=== PATIENT | male | born 1990 | race African-American/Black ===

== ENCOUNTER 2017-06-17 01:30 | Inpatient (IN) | payer SELFPAY ==
[2017-06-17] VITALS (10 sets, daily range): BP systolic 137–159; BP diastolic 90–104
[~2017-06-17] VITALS: Ht 180.3 cm; Wt 101.2 kg
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
[2017-06-17] MEDS ORDERED: DIPHTH,PERTUSS(ACELL),TET TOX 0.5 ML DISP.SYRIN. VAX IM ONE (02:30)
[2017-06-17] MEDS ORDERED: MORPHINE SULFATE 2 MG/ML DISP.SYRIN. IV/SQ PRN (02:30)
[2017-06-17 02:45] LABS: BASO # 0.1 x10^3/uL (0.0-0.2); BASO % 1 % (0-3); EOS % 1 % (0-3); HEMOGLOBIN 15.9 g/dL (13.0-17.5); LYMPH # 2.2 x10^3/uL (1.0-4.8); LYMPH % 18 % (24-48); MEAN CORPUSCULAR HEMOGLOBIN 29 pg (25-35); MEAN CORPUSCULAR HGB CONC 34 g/dL (31-37); MEAN CORPUSCULAR VOLUME 87 fL (79-100); MONO % 7 % (0-9); NEUT % 73 % (31-73); PLATELET COUNT 285 x10^3/uL (140-400); RED BLOOD COUNT 5.42 x10^6/uL (4.30-5.70); RED CELL DISTRIBUTION WIDTH 14.5 % (11.5-14.5); WHITE BLOOD COUNT 12.2 x10^3/uL (4.0-11.0)
[2017-06-17 03:09] LABS: CALCIUM 9.4 mg/dL (8.5-10.1); GFR 108.5; POTASSIUM 3.8 mmol/L (3.5-5.1)
[2017-06-17 03:12] LABS: PROTHROMBIN TIME PATIENT 12.2 SEC (11.7-14.0)
[2017-06-17] MEDS ORDERED: ONDANSETRON PF 4 MG/2 ML VIAL. IV PRN ×2 (03:15→08:00)
[2017-06-17] MEDS ORDERED: MORPHINE SULFATE 2 MG/ML DISP.SYRIN. IV PRN ×2 (03:15→08:00)
[2017-06-17] MEDS ORDERED: LIDOCAINE 1% / SOD BICARB 8.4% 20 ML VIAL. IJ ONE (03:30)
[2017-06-17] MEDS ORDERED: IV DEXTROSE 5 %-0.45 % NACL 1,000 ML IV ONE (03:30)
[2017-06-17] MEDS ORDERED: PROPOFOL 20 ML IV ONE (07:17)
[2017-06-17] MEDS ORDERED: LIDOCAINE 2% PF Vial for OR 5 ML VIAL. ONE (07:17)
[2017-06-17] MEDS ORDERED: DEXAMETHASONE SOD PHOS 20 MG/5 ML VIAL. ONE (07:18)
[2017-06-17] MEDS ORDERED: ONDANSETRON PF 4 MG/2 ML VIAL. ONE (07:18)
[2017-06-17] MEDS ORDERED: ROCURONIUM 50 MG/5 ML VIAL. ONE ×2 (07:19→10:04)
[2017-06-17] MEDS ORDERED: MIDAZOLAM HCL/PF 2 MG/2 ML VIAL. ONE (07:20)
[2017-06-17] MEDS ORDERED: fentaNYL PF VIAL 250 MCG/5 ML VIAL ONE (07:20)
[2017-06-17] MEDS ORDERED: BUPIVACAINE-EPI 0.25%-1:200000 50 ML VIAL. ONE (07:40)
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
[2017-06-17] MEDS ORDERED: HYDROmorphone 2 MG/ML VIAL IV PRN (08:00)
[2017-06-17] MEDS ORDERED: PROCHLORPERAZINE 10 MG/2 ML VIAL. IV PRN (08:00)
[2017-06-17] MEDS ORDERED: fentaNYL PF VIAL 100 MCG/2 ML VIAL IV PRN ×2 (08:00)
[2017-06-17] MEDS ORDERED: LIDOCAINE 1% PF 2 ML VIAL. ID PRN (08:00)
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
[2017-06-17] MEDS ORDERED: BUPIVACAINE-EPI 0.25%-1:200000 50 ML VIAL. INJ ONE (09:17)
[2017-06-17] MEDS ORDERED: MORPHINE SULFATE 10 MG/ML VIAL. ONE (09:20)
[2017-06-17] MEDS ORDERED: ESMOLOL 100 MG/10 ML VIAL. IV ONE (10:27)
[2017-06-17] MEDS ORDERED: TRANEXAMIC ACID 1,000 MG in IV NORMAL SALINE 50ML 50 ML INJ ONE ×2 (11:00→12:00)
[2017-06-17] MEDS ORDERED: DESFLURANE > 120 MINUTES IH ONE (11:12)
[2017-06-17] MEDS ORDERED: fentaNYL PF VIAL 100 MCG/2 ML VIAL ONE (11:12)
[2017-06-17] MEDS ORDERED: GLYCOPYRROLATE 1 MG/5 ML VIAL. ONE (11:13)
[2017-06-17] MEDS ORDERED: NEOSTIGMINE 10 MG/10 ML VIAL. ONE (11:13)
[2017-06-17] MEDS ORDERED: LABETALOL 20 MG/4 ML DISP.SYRIN. ONE (12:58)
[2017-06-17] MEDS ORDERED: oxyCODONE IR 5 MG TABLET PO PRN ×2 (13:30)
[2017-06-17] MEDS ORDERED: HYDROmorphone 2 MG/ML VIAL IM PRN (13:30)
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
[2017-06-17 14:09] LABS: BASO # 0.1 x10^3/uL (0.0-0.2); BASO % 0 % (0-3); EOS % 0 % (0-3); HEMOGLOBIN 13.2 g/dL (13.0-17.5); LYMPH # 1.2 x10^3/uL (1.0-4.8); LYMPH % 8 % (24-48); MEAN CORPUSCULAR HEMOGLOBIN 30 pg (25-35); MEAN CORPUSCULAR HGB CONC 34 g/dL (31-37); MEAN CORPUSCULAR VOLUME 88 fL (79-100); MONO % 1 % (0-9); NEUT % 91 % (31-73); PLATELET COUNT 275 x10^3/uL (140-400); RED BLOOD COUNT 4.46 x10^6/uL (4.30-5.70); RED CELL DISTRIBUTION WIDTH 14.3 % (11.5-14.5); WHITE BLOOD COUNT 16.2 x10^3/uL (4.0-11.0)
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
[2017-06-17 15:13] LABS: PLT ESTIMATE ADEQUATE (ADEQUATE)
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
[2017-06-17] MEDS: SENNOSIDES/DOCUSATE 8.6/50MG TABLET. PO SCH (15:40)
[2017-06-17] MEDS ORDERED: LABETALOL 20 MG/4 ML DISP.SYRIN. IVP PRN (19:30)
[2017-06-17] MEDS ORDERED: traMADol 50 MG TABLET PO PRN (22:00)
[2017-06-17] MEDS: ACETAMINOPHEN 500 MG TABLET PO SCH (23:41)
[2017-06-18 03:13] VITALS: BP 144/86
[2017-06-18 05:06] LABS: BASO % 0 % (0-3); EOS % 0 % (0-3); HEMATOCRIT 38.5 % (39.0-53.0); HEMOGLOBIN 12.9 g/dL (13.0-17.5); LYMPH % 12 % (24-48); MEAN CORPUSCULAR HEMOGLOBIN 29 pg (25-35); MEAN CORPUSCULAR HGB CONC 34 g/dL (31-37); MEAN CORPUSCULAR VOLUME 87 fL (79-100); MONO % 9 % (0-9); NEUT % 78 % (31-73); PLATELET COUNT 263 x10^3/uL (140-400); RED BLOOD COUNT 4.45 x10^6/uL (4.30-5.70); RED CELL DISTRIBUTION WIDTH 14.3 % (11.5-14.5); WHITE BLOOD COUNT 16.8 x10^3/uL (4.0-11.0)
[2017-06-18 05:10] LABS: CALCIUM 9.2 mg/dL (8.5-10.1); CREATININE 0.8 mg/dL (0.7-1.3); GFR 140.3
[2017-06-18] MEDS: ACETAMINOPHEN 500 MG TABLET PO SCH ×2 (06:18→12:00)
[2017-06-18 07:00] VITALS: BP 154/92
[2017-06-18] MEDS ORDERED: IV RINGERS,LACTATED 1000ML 1,000 ML IV SCH (07:00)
[2017-06-18] MEDS: SENNOSIDES/DOCUSATE 8.6/50MG TABLET. PO SCH (08:38)
[2017-06-18 11:00] VITALS: BP 147/92
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
[2017-06-18 15:00] VITALS: BP 142/90
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
== END 2017-06-18 19:43 | disposition home or self-care (01) | DRG 494 ==
LOC: ER 01:30 → EEVIPCON 01:30 → 4 NORTH 03:00
PROVIDERS: ADMIT Internal Medicine; ATTEND Internal Medicine
PROC: 0PC Upper Bones, Extirpation (ICD-10-PCS; 2017-06-17)
PROC: 0PSC04Z Reposition Right Humeral Head with Internal Fixation Device, Open Approach (ICD-10-PCS; principal; 2017-06-17 08:00)
DX: S42.201B Unspecified fracture of upper end of right humerus, initial encounter for open fracture (principal); S41.131A Puncture wound without foreign body of right upper arm, initial encounter; V00.131A Fall from skateboard, initial encounter; Y93.51 Activity, roller skating (inline) and skateboarding; Y92.331 Roller skating rink as the place of occurrence of the external cause; Y99.8 Other external cause status; Z83.3 Family history of diabetes mellitus; W34.00XA Accidental discharge from unspecified firearms or gun, initial encounter; Z56.0 Unemployment, unspecified
CPT/HCPCS: 12001; 36415; 71101; 73030; 73060; 76000; 80048; 83605; 85007; 85025; 85610; 85730; 86850; 86900; 86901; 90471; 90715; 96374; C1713; G0480; J0690; J1100; J2250; J2270; J2405; J2704; J2710; J3010; J3490; J7120; 99285-25; J2001